=== PATIENT | female | born 1965 | race Asian ===

== ENCOUNTER 2018-08-09 07:20 | Day surgery (SDC) | payer OTHER ==
[~2018-08-09] VITALS: Ht 157.5 cm; Wt 63.5 kg
[2018-08-09] MEDS ORDERED: BIRTH CONTROL (08:02)
[2018-08-09 08:05] VITALS: Ht 157.5 cm; Wt 63.5 kg
[2018-08-09 08:14] VITALS: BP 153/80; PULSE 69; RESP 18
[2018-08-09] MEDS ORDERED: LIDOCAINE 4% SOLUTION 50 ML BTL ONE (08:15)
[2018-08-09] MEDS ORDERED: FENTAnyl 50 MCG/ML VIAL ONE (09:01)
[2018-08-09] MEDS ORDERED: MIDAZOLAM 1 MG/ML 2 ML INJ ONE ×2 (09:01)
[2018-08-09 09:22] VITALS: BP 140/76; PULSE 63; RESP 22
== END 2018-08-09 10:04 | disposition home or self-care (01) ==
LOC: GIL 07:20
PROVIDERS: ATTEND Internal Medicine Gastroenterology
DX: Z12.11 Encounter for screening for malignant neoplasm of colon (principal); K29.50 Unspecified chronic gastritis without bleeding; K64.9 Unspecified hemorrhoids; K20.8 Other esophagitis
CPT/HCPCS: 43239; 45378; 84703; 88305; 88312; J2250; J3010; Z7610